=== PATIENT | female | born 2000 | race African-American/Black ===

== ENCOUNTER 2019-08-23 16:51 | Emergency (ER) | payer OTHER ==
[2019-08-24 12:09] LABS: SARS-CoV-2 MS2 Positive; SARS-CoV-2 N Gene Positive; SARS-CoV-2 S Gene Positive; SARS-CoV-2 orf1ab Positive
== END 2019-08-23 17:31 | disposition home or self-care (01) ==
LOC: ERS 16:51
DX: U07.1 COVID-19 (principal); R09.81 Nasal congestion
CPT/HCPCS: 87635; 99283; U0003

== ENCOUNTER 2019-09-04 11:36 | Emergency (ER) | payer OTHER ==
[2019-09-05 15:35] LABS: SARS-CoV-2 MS2 Positive; SARS-CoV-2 N Gene Negative; SARS-CoV-2 S Gene Negative; SARS-CoV-2 orf1ab Negative
== END 2019-09-04 12:37 | disposition home or self-care (01) ==
LOC: ERS 11:36
DX: Z20.828 Contact with and (suspected) exposure to other viral communicable diseases (principal)
CPT/HCPCS: 87635; 99283; U0003